=== PATIENT | female | born 1990 | race Caucasian/White ===

== ENCOUNTER 2018-12-04 14:35 | Outpatient (CLI) | payer MEDICAID | END 2018-12-04 23:59 | disposition home or self-care (01) | LOC: CARD DIAG 14:35 | PROVIDERS: ATTEND Student in an Organized Health Care Education/Training Program | DX: F50.00 Anorexia nervosa, unspecified (principal) | CPT/HCPCS: 93306 ==

== ENCOUNTER 2025-04-24 09:59 | Emergency (ER) | payer BC ==
[~2025-04-24] VITALS: Ht 162.6 cm; Wt 60.8 kg
--- NOTE | 2025-04-24 11:01 | Physician Documentation ---
History of Present Illness ~ Chief Complaint: Neck pain Stated Complaint: NECK PAIN Time Seen by MD: 10:45 HPI This is a 35-year-old female who presents with three days of posterior neck pain radiating into her back, patient additionally reports generalized malaise and body aches. Medication Reconciliation Allergies: Coded Allergies: No Known Allergies (Unverified , 04/24/25) Scheduled Ibuprofen (Ibuprofen), 1 TAB PO Q8H Lidocaine (Lidoderm), 1 PATCH TOP DAILY Past Medical History Past Medical History: No Pertinent History Smoking Status: Former smoker Review of Systems ROS Posterior neck pain and general malaise as stated above in the HPI, otherwise all systems are reviewed and negative. Physical Exam Vital Signs: Temperature: 98.5, Source: Oral, Heart Rate: 101, Respiratory Rate: 15, BP: 132/85, Pulse Oximetry: 99, Weight: 60.750 Physical Exam VITALS: Reviewed and as above. GENERAL: Alert, nontoxic appearing, no apparent distress. 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 Lidocaine 5% Patch (Lidoderm 5% Patch) (04/24/25 11:05) Ibuprofen Tablet (Motrin Tablet) (04/24/25 11:05) Vital Signs 04/24/25 04/24/25 10:05 12:47 Temp 98.5 99.7 Pulse 101 74 Resp 15 18 B/P (MAP) 132/85 115/88 (97) Pulse Ox 99 98 O2 Flow Rate 0 Medical Decision Making Findings This 35-year-old female presented with two days of posterior neck and head pain along with three days of generalized malaise, patient reported no other symptoms and her physical exam was benign and she is otherwise well-appearing, there was some muscle tension noted in posterior neck otherwise neck is supple without lymphadenopathy or meningeal signs. Patient medicated for pain in department reporting some improvement. As patient has concerns for medication interactions while breast feeding, with shared decision-making further medication not attempted for complete relief of symptoms. As patient is otherwise well- appearing I suspect symptoms including general malaise may indicate viral prodrome, I discussed this with patient along with plan for home care which she agrees to. Patient provided home care instructions, and careful return to care precaution which she verbalized understanding of. Patient is appropriate for outpatient follow up. Differential Dx:Considerations: Include: Cervical muscle spasm, DJD, Meningitis, Torticollis, Other (Viral illness) Departure Disposition: HOME / SELF CARE / HOMELESS Impression: Primary Impression: Neck pain Condition: Improved Discharge Instructions: Acute Torticollis, Adult, Tension Headache, Adult Additional Instructions: Please use the prescribed medications as needed for neck and back pain, I suspect your symptoms may be early signs of a viral illness as we discussed. Please follow up with your primary care provider in the next few days. Please return to the emergency department for any new or worsening concerning symptoms. Referrals: NO PRIMARY CARE PROVIDER (PCP) Prescriptions Lidocaine (Lidoderm) 5 % Adh..patch 1 PATCH TOP DAILY for 10 Days, #10 PATCH 0 Refills may wear up to 12 hours Prov: SALVADOR FOX 04/24/25 Ibuprofen (Ibuprofen) 800 Mg Tablet 1 TAB PO Q8H for pain for 10 Days, #30 TAB 0 Refills Prov: SALVADOR FOX 04/24/25 Education Educated: Patient Educated regarding: diagnosis, treatment, prognosis, need for follow up Signature Scribe Signature: No scribe Attestation: The note accurately reflects work and decisions made by me.KATIANA Larkin 04/24/25 21:40 SALVADOR FOX Apr 24, 2025 11:01
[2025-04-24] MEDS: ibuprofen tablet 400 MG TABLET PO ONE (11:57)
[2025-04-24] MEDS: LIDOcaine 5% patch TP ONE (11:58)
[2025-04-24] MEDS ORDERED: IBUP-1986 PO (12:46)
[2025-04-24] MEDS ORDERED: LIDO-52 TOP (12:46)
[2025-04-24 12:47] VITALS: BP 115/88; PULSE 74; RESP 18; TEMP 99.7; O2SAT 98
== END 2025-04-24 12:58 | disposition home or self-care (01) ==
LOC: ER 10:00
DX: M54.2 Cervicalgia (principal); R53.81 Other malaise; Z87.891 Personal history of nicotine dependence
CPT/HCPCS: 99283

== ENCOUNTER 2025-05-02 09:52 | Outpatient (CLI) | payer BC ==
[~2025-05-02 09:52] MED LIST: IBUP-1986 PO; LIDO-52 TOP
--- NOTE | 2025-05-02 18:37 | CARDIOLOGY REPORT ---
APPROVED REPORT EXAM: Comprehensive 2D, Doppler, and color-flow Echocardiogram. Patient Location: OUT-PATIENT Blood Pressure: 96 / 52 mmHg Heart Rate: 73 bpm Rhythm: SINUS Indications SHORT OF BREATH DIZZINESS FATIGUE Drilling Inspector: NONE Previous echo: 12/04/2018 [facility] EF: 60-65%; nlLV; nlRV; nlAV; nlMV-trMR; nlTV-trTR 2D Dimensions RVDd 3.2 cm LVOT Diameter 1.92 (1.8-2.4cm) M-Mode Dimensions Left Atrium(MM) 2.98 (2.5-4.0cm) IVSd 0.65 (0.7-1.1cm) LVDd 4.06 (4.0-5.6cm) Aortic Root 2.37 (2.2-3.7cm) PWd 0.80 (0.7-1.1cm) IVSs 1.04 cm MV EPSS 0.1 (<0.5cm) LVDs 2.59 (2.0-3.8cm) FS (%) 36 % PWs 1.36 cm ESV(Teich) 24.5 ml LVEF(%) 66 (>50%) Aortic Valve AoV Peak Jose. 136.3 cm/s AoV VTI 29.7 cm AO Peak GR. 7.4 mmHg AO Mean GR. 4 mmHg LVOT VTI 21.21 cm LVOT Peak Jose. 103.4 cm/s AISHA (VMAX) 2.19 cm2 AISHA (VTI) 2.06 cm2 Mitral Valve MV E Velocity 80.1 cm/s MV DECEL TIME 192 ms MV A Velocity 77.3 cm/s MV PHT 54 ms E/A Ratio 1.0 MVA (PHT) 4.10 cm2 Tricuspid Valve TR P. Velocity 200 cm/s RAP ESTIMATE 10 mmHg TR Peak Gr. 16 mmHg RVSP 26 mmHg Pulmonary Vein S2 Velocity 52.41 cm/s PVa [id number] msec LEFT VENTRICLE Normal LV size and wall thickness. Overall systolic function is normal. Overall LVEF is 65%. RIGHT VENTRICLE RV is normal size and function. ATRIA The left atrium size is normal. Bowed interatrial septum - no flow detected. AORTIC VALVE Trileaflet AV appears normal without stenosis or insufficiency. MITRAL VALVE Normal MV annulus without stenosis. Trace regurgitation. TRICUSPID VALVE TV appears structurally normal with trace regurgitation. PULMONIC VALVE Normal PV without stenosis, physiologic insufficiency. GREAT VESSELS Aortic root is normal in size. Normal appearing arch with normal flow velocities. Ascending aorta is normal in size. PERICARDIUM Normal pericardium. No effusion. Other Information Study Quality: Adequate Conclusion Overall LVEF is 65%. Normal LV size and wall thickness. Overall systolic function is normal. RV is normal size and function. The left atrium size is normal. Bowed interatrial septum - no flow detected. Trileaflet AV appears normal without stenosis or insufficiency. Normal MV annulus without stenosis. Trace regurgitation. TV appears structurally normal with trace regurgitation. Normal PV without stenosis, physiologic insufficiency. Normal pericardium. No effusion.
== END 2025-05-02 23:59 | disposition home or self-care (01) ==
LOC: CARD DIAG 09:52
PROVIDERS: ATTEND Student in an Organized Health Care Education/Training Program
DX: I37.1 Nonrheumatic pulmonary valve insufficiency (principal); R06.02 Shortness of breath; R42 Dizziness and giddiness; R53.83 Other fatigue; R00.2 Palpitations
CPT/HCPCS: 93306

== ENCOUNTER 2025-05-17 08:01 | Outpatient (CLI) | payer BC ==
[2025-05-17] VITALS (21 sets, daily range): BP systolic 108–138; BP diastolic 71–87; PULSE 73–108
== END 2025-05-17 23:59 | disposition home or self-care (01) ==
LOC: CARD DIAG 08:01
PROVIDERS: ATTEND Internal Medicine Cardiovascular Disease
DX: R40.4 Transient alteration of awareness (principal); R42 Dizziness and giddiness
CPT/HCPCS: 93660

== ENCOUNTER 2025-06-13 09:22 | Outpatient (CLI) | payer BC ==
[2025-06-14 13:42] LABS: C DIFF ANTIGEN NEGATIVE (NEGATIVE); C DIFF SPECIMEN=DIARRHEA? ACCEPTABLE; C DIFFICILE TOXINS A&B NEGATIVE (Neg)
== END 2025-06-13 23:59 | disposition home or self-care (01) ==
LOC: RAD 09:22
PROVIDERS: ATTEND Nurse Practitioner Family
DX: R19.5 Other fecal abnormalities (principal)
CPT/HCPCS: 36415; 83993; 86003; 87324; 87449

== ENCOUNTER 2025-07-18 09:33 | Outpatient (CLI) | payer BC ==
--- NOTE | 2025-07-18 10:11 | RADIOLOGY REPORT ---
CLINICAL INDICATION: LEFT FOOT PAIN TECHNIQUE: 2 radiographic views of the left foot were obtained. Comparison: None FINDINGS/IMPRESSION: There is no evidence of acute fracture or dislocation. The visualized joint space is well maintained. The alignment is anatomical. There is no radiopaque foreign body.
== END 2025-07-18 23:59 | disposition home or self-care (01) ==
LOC: RAD 09:33
PROVIDERS: ATTEND Nurse Practitioner Family
DX: M79.672 Pain in left foot (principal)
CPT/HCPCS: 73620